=== PATIENT | female | born 1940 | race Hispanic/Latino ===

== ENCOUNTER 2021-12-03 22:30 | Inpatient (IN) | payer MEDICARE ==
[2021-12-03] MEDS ORDERED: SODIUM CHLORIDE 0.9% 1000 ML 1,000 ML IV ONE (23:10)
--- NOTE | 2021-12-03 23:17 | Emergency Department Report ---
HPI - General Chief Complaint: Medical Clearance PUI?: Yes Time Seen by Provider: 12/03/21 23:00 - HPI HPI: 81yo F presents stating "I'm tired." She states she is "nervous," after having been exposed to covid via her daughter. She did denies any nausea or vomiting fevers or chills. She states "sometimes I cough" but denies any active cough at this time. She reports decreased appetite. She denies any chest pain shortness of breath difficulty breathing palpitations abdominal pain or UTI symptoms. Pain 0-10 ED Past Medical Hx - Past Medical History Previous Medical History?: No - Family History Family history: no significant ED Review of Systems ROS: Stated complaint: WEAKNESS Other details as noted in HPI Constitutional: no symptoms reported. denies: chills, diaphoresis, fever, malaise, weakness, other Eyes: denies: eye pain, eye discharge, vision change ENT: denies: ear pain, throat pain, dental pain, hearing loss, epistaxis Respiratory: cough. denies: orthopnea, shortness of breath, SOB with exertion, SOB at rest, stridor, wheezing Cardiovascular: as per HPI. denies: chest pain, palpitations, dyspnea on exertion, orthopnea, edema, syncope, paroxysmal nocturnal dyspnea Endocrine: no symptoms reported Gastrointestinal: denies: abdominal pain, nausea, vomiting, diarrhea, constipation, hematemesis, melena Genitourinary: denies: urgency, dysuria, frequency, hematuria, discharge, abnormal menses, dyspareunia Musculoskeletal: denies: as per HPI, back pain, joint swelling, arthralgia, myalgia Skin: denies: rash, lesions, change in color, change in hair/nails, pruritus Neurological: denies: headache, weakness, numbness, paresthesias, confusion, abnormal gait, vertigo Psychiatric: anxiety. denies: depression, auditory hallucinations, visual hallucinations, homicidal thoughts, suicidal thoughts Hematological/Lymphatic: denies: as per HPI, easy bruising, swollen glands Physical Exam - Physical Exam Vital Signs: Vital Signs 12/03/21 22:33 Temperature 98 F Pulse Rate 82 Respiratory 16 Rate Blood Pressure 180/70 [Right] O2 Sat by Pulse 98 Oximetry General: Gen: pt is well appearing, no acute distress HEENT: Normocephalic atraumatic pupils equally round and reactive to light extraocular muscles intact sclera anicteric Neck: Full range of motion, no midline spinal tenderness palpation, no JVD, no carotid bruits, no nuchal rigidity CVS: S1-S2 regular rate and rhythm with no gallops rubs or murmurs, chest wall nontender Pulmonary: Clear to auscultation bilaterally, no wheezes rales or rhonchi Abdomen: Soft nondistended nontender no guarding or rebound tenderness, no palpable deformities or step-offs, normal active bowel sounds, no hepatosplenomegaly, no pulsatile masses : Deferred Extremities: No cyanosis no clubbing no edema, intact distal peripheral pulses, Integumentary: Skin normal, no petechia no purpura no abscess no lacerations no evidence of trauma no evidence of infection Neuro: Patient is awake alert and oriented to person place time situation, mentating well, cranial nerves II through XII intact, no focal neurodeficits, sensation grossly tact Psych: Calm cooperative, mood affect normal ED Course Vital Signs 12/03/21 22:33 Temperature 98 F Pulse Rate 82 Respiratory 16 Rate Blood Pressure 180/70 [Right] O2 Sat by Pulse 98 Oximetry ED Medical Decision Making - Lab Data Result diagrams: 12/03/21 23:27 12/03/21 23:27 - EKG Data -: EKG Interpreted by [place] EKG shows normal: sinus rhythm Rate: normal - EKG Data When compared to previous EKG there are: previous EKG unavailable Interpretation: other 12/04/21 01:03 Ventricular rate 71 bpm. P waves are present and proceed every QRS complex. Intervals normal. Patient has ST depressions in inferior and lateral leads. No ectopic. No arrhythmia. Normal axis. Sinus rhythm. Patient has no prior EKG available for comparison - Radiology Data Radiology results: report reviewed - Medical Decision Making 81-year-old female presents for evaluation of fatigue and weakness and concerns that she has active COVID infection. Vital stable. Patient is afebrile here. Labs reviewed. Creatinine and BUN are elevated. Patient has mild hyponatremia. She also has anemia and thrombocytopenia. Urinalysis remains pending at the time of this dictation. Chest x-ray unremarkable. Case reviewed with admitting hospitalist, Dr. Irby. He has accepted for the admission to the hospitalist service for further management. Critical care attestation.: If time is entered above; I have spent that time in minutes in the direct care of this critically ill patient, excluding procedure time. ED Disposition Clinical Impression: MANSI (acute kidney injury), Anemia, Thrombocytopenia Disposition: 09 ADMITTED INPATIENT Is pt being admited?: Yes Does the pt Need Aspirin: No Condition: Stable
--- NOTE | 2021-12-03 23:33 | XRay Report ---
CHEST 1 VIEW 12/03/2021 11:20 PM INDICATION / CLINICAL INFORMATION: fatigue, cough. COMPARISON: None available. FINDINGS: SUPPORT DEVICES: None. HEART / MEDIASTINUM: No significant abnormality. LUNGS / PLEURA: No significant pulmonary abnormality. No significant pleural effusion. No pneumothora x. ADDITIONAL FINDINGS: No significant additional findings. IMPRESSION: 1. No acute abnormality of the chest. Signer Name: Arron Kennedy MD Signed: 12/03/2021 11:28 PM Workstation Name: [id number]
[2021-12-03 23:40] LABS: Basophils % (Auto) 0.4 % (0.0-1.8); Eosinophils % (Auto) 0.5 % (0.0-4.3); Hematocrit 27.7 % (30.3-42.9); Hemoglobin 9.6 gm/dl (10.1-14.3); Lymphocytes # (Auto) 0.9 K/mm3 (1.2-5.4); Lymphocytes % (Auto) 17.9 % (13.4-35.0); Mean Corpuscular HGB Conc 35 % (30-34); Mean Corpuscular Volume 91 fl (79-97); Monocytes # (Auto) 0.5 K/mm3 (0.0-0.8); Monocytes % (Auto) 10.3 % (0.0-7.3); Platelet Count 117 K/mm3 (140-440); Red Blood Count 3.03 M/mm3 (3.65-5.03); Red Cell Distribution Width 13.2 % (13.2-15.2)
[2021-12-03 23:53] LABS: Calcium 8.2 mg/dL (8.4-10.2)
[2021-12-04] MEDS ORDERED: SODIUM CHLORIDE 0.9% 1000 ML 1,000 ML IV ONE (00:07)
[2021-12-04 01:40] LABS: Bilirubin,Urine Negative (Negative); Blood,Urine Negative (Negative); Color,Urine Colorless (Yellow); Urobilinogen,Urine 0.2 mg/dL (<2.0)
[2021-12-04 01:41] LABS: Bacteria,Urine 1+ /HPF (Negative); Mucus,Urine FEW /HPF; RBC,Urine < 1.0 /HPF (0.0-6.0)
[2021-12-04] MEDS ORDERED: MORPHINE 2 MG/1 ML INJ IV PRN (03:08)
[2021-12-04] MEDS ORDERED: ONDANSETRON 4 MG/2 ML INJ IV PRN (03:08)
[2021-12-04] MEDS ORDERED: MORPHINE 4 MG/1 ML INJ IV PRN (03:08)
[2021-12-04] MEDS ORDERED: MAGNESIUM HYDROXIDE (MOM) ORAL LIQD UDC PO PRN (03:08)
[2021-12-04] MEDS ORDERED: ACETAMINOPHEN 325 MG TAB PO PRN (03:08)
--- NOTE | 2021-12-04 03:24 | History and Physical Report ---
History of Present Illness Date of examination: 12/04/21 Date of admission: 12/02/2021 Chief complaint: Generalized weakness History of present illness: 81-year-old female with no significant past medical history presenting to the emergency room today complaining of generalized weakness, loss of appetite, nausea without any vomiting. Patient indicates that she probably has been exposed to COVID-19 as some family members had COVID infection. She states she has had a low-grade fever at home and some mild cough. She denies any chest pain and denies any shortness of breath. Denies any headache or dizziness and denies any diaphoresis. Patient admits that she has not had the COVID-19 vaccination. Work-up in the emergency room today, lab reveals hemoglobin of 9.6 and hematocrit of 27.7. Sodium of 133, BUN of 35 and creatinine of 3.1. Urinalysis significant for 1+ bacteria otherwise unremarkable. Chest x-ray was also unremarkable. Patient admitted for MANSI and will also be screened for COVID-19. Past History Past Medical History: No medical history Past Surgical History: No surgical history Social history: no significant social history Family history: no significant family history Medications and Allergies Allergies Allergy/AdvReac Type Severity Reaction Status Date / Time No Known Allergies Allergy Verified 12/04/21 03:21 Review of Systems Constitutional: weakness Ears, nose, mouth and throat: no nasal congestion, no sore throat Cardiovascular: no chest pain, no palpitations Respiratory: cough, shortness of breath Gastrointestinal: no abdominal pain, no nausea, no vomiting, no diarrhea Genitourinary Female: no pelvic pain, no flank pain, no dysuria, no nocturia Musculoskeletal: no neck pain, no low back pain Integumentary: no rash, no pruritis Neurological: no headaches, no confusion Psychiatric: no anxiety, no confusion Endocrine: no polyphagia, no polydipsia, no polyuria, no nocturia Exam - Constitutional Vitals: Temp Pulse Resp BP Pulse Ox 99.7 F H 82 16 180/70 98 12/04/21 01:28 12/03/21 22:33 12/03/21 22:33 12/03/21 22:33 12/03/21 22:33 General appearance: Present: no acute distress, well-nourished - EENT Eyes: Present: PERRL, EOM intact. Absent: scleral icterus ENT: hearing intact, clear oral mucosa, dentition normal - Neck Neck: Present: supple, normal ROM - Respiratory Respiratory effort: normal Respiratory: right: rales - Cardiovascular Rhythm: regular Heart Sounds: Present: S1 & S2. Absent: gallop, systolic murmur, diastolic murmur, rub, click - Extremities Extremities: no ischemia, pulses intact, pulses symmetrical, No edema, normal temperature, normal color, Full ROM Peripheral Pulses: within normal limits - Abdominal General gastrointestinal: Present: soft, non-tender, non-distended, normal bowel sounds. Absent: mass - Integumentary Integumentary: Present: clear, warm, dry - Musculoskeletal Musculoskeletal: strength equal bilaterally - Psychiatric Psychiatric: appropriate mood/affect, intact judgment & insight, memory intact, cooperative - Neurologic Neurologic: CNII-XII intact, no focal deficits, moves all extremities Results - Labs CBC & Chem 7: 12/03/21 23:27 08 23:27 Labs: Abnormal lab results 12/03/21 12/03/21 Range/Units 23:27 23:27 RBC 3.03 L (3.65-5.03) M/mm3 Hgb 9.6 L (10.1-14.3) gm/dl Hct 27.7 L (30.3-42.9) % MCHC 35 H (30-34) % Plt Count 117 L (140-440) K/mm3 [place] % (Auto) 10.3 H (0.0-7.3) % Lymph # (Auto) 0.9 L (1.2-5.4) K/mm3 Seg Neutrophils % 70.9 H (40.0-70.0) % Sodium 133 L (137-145) mmol/L Carbon Dioxide 20 L (22-30) mmol/L BUN 35 H (7-17) mg/dL Creatinine 3.1 H (0.6-1.2) mg/dL Glucose 109 H (65-100) mg/dL Calcium 8.2 L (8.4-10.2) mg/dL Assessment and Plan Assessment: 1. Generalized weakness. 2. MANSI 3. PUI Plan: 1. Patient admitted and placed on IV fluid. 2. We monitor BUN and creatinine. 3. Patient will be screened for COVID-19. 4. Please consult to nephrology for evaluation and recommendations. DVT Prophylaxis: SQ heparin Code Status : Full Code
--- NOTE | 2021-12-04 08:55 | Consultation ---
History of Present Illness - Reason for Consult Consult date: 12/04/21 acute renal failure - History of Present Illness The patient is a 81 YO female with no significant past medical history who presented to [facility] ED 12/03/21 with complaint of generalized weakness, loss of appetite, nausea without any vomiting. Patient is a very poor historian. He indicated that she probably has been exposed to COVID-19 as some family members had COVID infection. She reported that she has had a low-grade fever at home and some mild cough. She denies any chest pain, shortness of breath, headache, dizziness and diaphoresis. Patient has not had the COVID-19 vaccination. Work- up in the ED, Hemoglobin 9.6, Sodium 133, BUN 35 and Creatinine of 3.1. Urinalysis negative for protein and blood. Chest x-ray was unremarkable. Nephrology consulted for further evaluation and treatment of MANSI. Past History Past Medical History: No medical history Past Surgical History: No surgical history Social history: no significant social history Family history: no significant family history Medications and Allergies Allergies Allergy/AdvReac Type Severity Reaction Status Date / Time No Known Allergies Allergy Verified 12/04/21 03:21 Active Meds: Active Medications Acetaminophen (Acetaminophen 325 Mg Tab) 650 mg PO Q4H PRN PRN Reason: Pain MILD(1-3)/Fever >100.5/CLAUDIO Sodium Chloride (Nacl 0.9% 1000 Ml) 1,000 mls @ 125 mls/hr IV DIRECT FRANC Magnesium Hydroxide (Magnesium Hydroxide (Mom) Oral Liqd Udc) 30 ml PO Q4H PRN PRN Reason: Constipation Morphine Sulfate (Morphine 2 Mg/1 Ml Inj) 2 mg IV Q4H PRN PRN Reason: Pain, Moderate (4-6) Morphine Sulfate (Morphine 4 Mg/1 Ml Inj) 4 mg IV Q4H PRN PRN Reason: Pain , Severe (7-10) Ondansetron HCl (Ondansetron 4 Mg/2 Ml Inj) 4 mg IV Q8H PRN PRN Reason: Nausea And Vomiting Sodium Chloride (Sodium Chloride 0.9% 10 Ml Flush Syringe) 10 ml IV BID FRANC Sodium Chloride (Sodium Chloride 0.9% 10 Ml Flush Syringe) 10 ml IV PRN PRN PRN Reason: LINE FLUSH Review of Systems ROS unobtainable: due to mental status Exam - Vital Signs Vital signs: Vital Signs Temp Pulse Resp BP Pulse Ox 98 F 82 16 180/70 98 12/03/21 22:33 12/03/21 22:33 12/03/21 22:33 12/03/21 22:33 12/03/21 22:33 Results - Lab Results 12/03/21 23:27 12/04/21 12:53 Most recent lab results Calcium 8.2 mg/dL (8.4-10.2) L 12/03/21 23:27 Assessment and Plan 1. Acute kidney injury: Vasomotor MANSI superimposed on CKD in the setting of A.Fib with RVR. UA negative. Renal US showed atrophic kidneys. Baseline renal function unknown, most likely CKD. IV fluids. Monitor renal function. Creatinine leveled off. Avoid nephrotoxic agents. Meds dosage based on GFR. 2. FEN: Hyperkalemia, Kayaxalate, monitor. Replete lytes as needed. Monitor lytes and volume status. 3. Generalized weakness: Monitor. 4. COVID PUI 5. Normocytic Anemia, POA: Trend. Subjective: Patient was seen and examined at the bedside. Examination: General appearance: well-developed, appears stated age, no distress HEENT: atraumatic, no icterus Neck: trachea midline Respiratory: ctab Heart: S1S2, regular, no murmur Abdomen: soft, bowel sounds heard, NT Integumentary: no obvious rash Neurologic: AO, able to move extremities Ext: no edema
--- NOTE | 2021-12-04 09:01 | Ultrasound Report ---
ULTRASOUND RENAL INDICATION / CLINICAL INFORMATION: MANSI. COMPARISON: None available. FINDINGS: RIGHT KIDNEY: Length = 8.9 cm. [normal > 9 cm] - Parenchymal Thickness = 1.2 cm. [normal > 1.5 cm] - Echogenicity: Increased - Hydronephrosis: None. - Cyst or mass: No significant abnormality. - Stones: None seen. LEFT KIDNEY: Length = 8.7 cm. [normal > 9 cm] - Parenchymal Thickness = 1.4 cm. [normal > 1.5 cm] - Echogenicity: Increased - Hydronephrosis: None. - Cyst or mass: No significant abnormality. - Stones: None seen. URINARY BLADDER: The bladder is mostly empty but no gross abnormality. FREE FLUID: None. ADDITIONAL FINDINGS: None. IMPRESSION: Both kidneys are slightly atrophic with increased echotexture consistent with nonspecific chronic re nal parenchymal disease. No focal renal lesion, nephrolithiasis or hydronephrosis. Signer Name: Kleber Pabon Jr, MD Signed: 12/04/2021 8:56 AM Workstation Name: [id number]
[2021-12-04 13:30] LABS: Albumin 3.8 g/dL (3.9-5); Calcium 8.9 mg/dL (8.4-10.2)
[2021-12-04 14:49] LABS: C-Reactive Protein 2.1 mg/dL (0.00-1.30)
--- NOTE | 2021-12-04 16:26 | Event Note ---
Date: 12/04/21 81-year-old female with no significant past medical history presenting to the emergency room complaining of generalized weakness, loss of appetite, nausea without any vomiting and low-grade fever. Patient indicates that she probably has been exposed to COVID-19 as some family members had COVID infection. Patient admits that she has not had the COVID-19 vaccination. Work-up in the emergency room showed hemoglobin of 9.6 and hematocrit of 27.7. Sodium of 133, BUN of 35 and creatinine of 3.1. Urinalysis significant for 1+ bacteria otherwise unremarkable. Chest x-ray was also unremarkable. Patient admitted for MANSI and ordered for COVID-19. Continue IV fluid, nephrology has been consulted Follow COVID-19 test result, monitor fever curve and O2 saturation Repeat BMP in the morning -It took me about 28 minutes to reevaluate and reasses this patient, discussed with RN/CM, review medical documents, lab results, imaging, medication list and placing order.
[2021-12-04] MEDS ORDERED: SODIUM POLYSTYRENE 15 GM/60 ML ORAL LIQD PO ONE (19:16)
[2021-12-05] MEDS: SODIUM CHLORIDE 0.9% 1000 ML 1,000 ML IV SCH ×2 (05:22→17:05)
[2021-12-05] MEDS ORDERED: hydrALAZINE 20 MG/1 ML INJ IV NR (06:31)
[2021-12-05 07:32] LABS: Basophils % (Auto) 0.2 % (0.0-1.8); Eosinophils # (Auto) 0.2 K/mm3 (0.0-0.4); Eosinophils % (Auto) 3.1 % (0.0-4.3); Hematocrit 25.8 % (30.3-42.9); Hemoglobin 9.2 gm/dl (10.1-14.3); Lymphocytes # (Auto) 0.9 K/mm3 (1.2-5.4); Lymphocytes % (Auto) 17.6 % (13.4-35.0); Mean Corpuscular HGB Conc 36 % (30-34); Mean Corpuscular Volume 91 fl (79-97); Monocytes # (Auto) 0.6 K/mm3 (0.0-0.8); Monocytes % (Auto) 11.2 % (0.0-7.3); Platelet Count 121 K/mm3 (140-440); Red Blood Count 2.84 M/mm3 (3.65-5.03); Red Cell Distribution Width 12.7 % (13.2-15.2)
[2021-12-05 07:47] LABS: Calcium 8.3 mg/dL (8.4-10.2)
[2021-12-05] MEDS ORDERED: SODIUM POLYSTYRENE 15 GM/60 ML ORAL LIQD PO NR (07:54)
--- NOTE | 2021-12-05 12:27 | Progress Note ---
Assessment and Plan 1. Acute kidney injury: Vasomotor MANSI superimposed on CKD in the setting of A.Fib with RVR. UA negative. Renal US showed atrophic kidneys. Baseline renal function unknown, most likely CKD. IV fluids. Monitor renal function. Creatinine leveled off. Avoid nephrotoxic agents. Meds dosage based on GFR. 2. FEN: Hyperkalemia, Kayaxalate, monitor. Replete lytes as needed. Monitor lytes and volume status. 3. Generalized weakness: Monitor. 4. COVID PUI 5. Normocytic Anemia, POA: Trend. Subjective: Patient was seen and examined at the bedside. Examination: General appearance: well-developed, appears stated age, no distress HEENT: atraumatic, no icterus Neck: trachea midline Respiratory: ctab Heart: S1S2, regular, no murmur Abdomen: soft, bowel sounds heard, NT Integumentary: no obvious rash Neurologic: AO, able to move extremities Ext: no edema Subjective Date of service: 12/05/21 Objective - Vital Signs Vital signs: Vital Signs - 12hr 12/05/21 12/05/21 01:36 04:57 Temperature 98.7 F Pulse Rate 61 Respiratory 16 Rate Blood Pressure 171/48 O2 Sat by Pulse 98 96 Oximetry - Lab 12/05/21 06:50 12/05/21 17:30 Most recent lab results Calcium 8.3 mg/dL (8.4-10.2) L 12/05/21 06:50 Medications & Allergies - Medications Allergies/Adverse Reactions: Allergies No Known Allergies Allergy (Verified 12/04/21 03:21) Active Medications: Generic Name Dose Route Start Last Admin Trade Name Freq PRN Reason Stop Dose Admin Acetaminophen 650 mg 12/04/21 03:08 Acetaminophen 325 Mg Tab PO Q4H PRN Pain MILD(1-3)/Fever >100.5/CLAUDIO Sodium Chloride 1,000 mls @ 125 mls/hr 12/04/21 03:15 12/05/21 05:22 Nacl 0.9% 1000 Ml IV 125 mls/hr DIRECT FRANC Administration Magnesium Hydroxide 30 ml 12/04/21 03:08 Magnesium Hydroxide (Mom) Oral Liqd Udc PO Q4H PRN Constipation Morphine Sulfate 2 mg 12/04/21 03:08 Morphine 2 Mg/1 Ml Inj IV Q4H PRN Pain, Moderate (4-6) Morphine Sulfate 4 mg 12/04/21 03:08 Morphine 4 Mg/1 Ml Inj IV Q4H PRN Pain , Severe (7-10) Ondansetron HCl 4 mg 12/04/21 03:08 Ondansetron 4 Mg/2 Ml Inj IV Q8H PRN Nausea And Vomiting Sodium Chloride 10 ml 12/04/21 10:00 12/04/21 23:27 Sodium Chloride 0.9% 10 Ml Flush Syringe IV 10 ml BID FRANC Administration Sodium Chloride 10 ml 12/04/21 03:08 Sodium Chloride 0.9% 10 Ml Flush Syringe IV PRN PRN LINE FLUSH
--- NOTE | 2021-12-05 15:09 | Progress Note ---
Assessment and Plan 81-year-old female with no significant past medical history presenting to the emergency room complaining of generalized weakness, loss of appetite, nausea without any vomiting and low-grade fever. Patient indicates that she probably has been exposed to COVID-19 as some family members had COVID infection. Patient admits that she has not had the COVID-19 vaccination. Work-up in the emergency room showed hemoglobin of 9.6 and hematocrit of 27.7. Sodium of 133, BUN of 35 and creatinine of 3.1. Urinalysis significant for 1+ bacteria otherwise unremarkable. Chest x-ray was also unremarkable. Patient admitted for MANSI and ordered for COVID-19. Daily clinical course: 12/05/21: Patient is positive for COVID-19, she is maintaining oxygenation on room air. We will follow-up inflammatory markers. Continue to decline renal function patient is not a candidate for remdesivir and no dexamethasone needed as patient not hypoxic. Continue to follow renal function, will consult ID. Assessment and plan: --Positive for COVID-19 -Patient tested positive for COVID-19 virus -CXR is unremarkable, patient is not hypoxic -We will consult infectious disease -Droplet/contact isolation -Continue SPO2 monitoring -Supplemental oxygen as needed -Pulmonary hygiene -Prone to sleep -Vitamin C, vitamin D, zinc -Anticoagulation per protocol -- MANSI on possible CKD Likely due to vasomotor nephropathy and COVID-19 infection Renal ultrasound suggestive for chronic medical disease Gentle IV fluid hydration and follow [facility] Nephrology following --Anemia of chronic disease, monitor H&H --Hyperkalemia, likely due to underlying CKD Follow [facility], start sodium bicarbonate p.o. --Metabolic acidosis due to underlying CKD, started on sodium bicarbonate --DVT prophylaxis, heparin Subjective Date of service: 12/05/21 Interval history: Patient seen and examined. Medical records and medication list reviewed. No acute event overnight noted by the RN. Patient denies any chest pain or difficulty breathing. Patient is tolerating diet. Resting on room air Discussed plan of care at bedside with patient. Objective - Exam Narrative Exam: Limited physical exam due to COVID-19 pandemic to minimize transmission of the disease and to preserve PPE. Vital reviewed and stable. GENERAL: Elderly white female lying on bed appeared to be in no discomfort. HEENT: Normocephalic. Atraumatic. NECK: Supple. CHEST/LUNGS: breathing nonlabored. HEART/CARDIOVASCULAR: Heart rate stable on telemetry ABDOMEN: Visibly not distended SKIN: There is no rash NEURO: No focal motor deficit. Follows command. MUSCULOSKELETAL: No joint effusion EXTRIMITY: No swelling, no cyanosis or clubbing. PSYCH: Cooperative. - Constitutional Vitals: Vital Signs - 12hr 12/05/21 04:57 Temperature 98.7 F Pulse Rate 61 Respiratory 16 Rate Blood Pressure 171/48 O2 Sat by Pulse 96 Oximetry - Labs CBC & Chem 7: 12/05/21 06:50 12/05/21 06:50 Labs: Abnormal lab results 12/05/21 12/05/21 12/05/21 Range/Units 06:50 06:50 09:10 RBC 2.84 L (3.65-5.03) M/mm3 Hgb 9.2 L (10.1-14.3) gm/dl Hct 25.8 L (30.3-42.9) % MCHC 36 H (30-34) % RDW 12.7 L (13.2-15.2) % Plt Count 121 L (140-440) K/mm3 [place] % (Auto) 11.2 H (0.0-7.3) % Lymph # (Auto) 0.9 L (1.2-5.4) K/mm3 Sodium 135 L (137-145) mmol/L Potassium 5.2 H (3.6-5.0) mmol/L Chloride 107.3 H (98-107) mmol/L Carbon Dioxide 18 L (22-30) mmol/L BUN 33 H (7-17) mg/dL Creatinine 3.0 H (0.6-1.2) mg/dL Calcium 8.3 L (8.4-10.2) mg/dL Coronavirus (PCR) Positive A (Negative)
[2021-12-05 16:33] LABS: Creatinine,Urine 47.4 mg/dL (0.1-20.0)
[2021-12-05] MEDS: HEPARIN 5,000 UNIT/1 ML VIAL SUB-Q SCH ×2 (16:37→21:54)
[2021-12-05] MEDS: SODIUM BICARBONATE 650 MG TAB PO SCH ×2 (17:04→21:54)
[2021-12-05] MEDS ORDERED: hydrALAZINE 10 MG TAB PO PRN (19:30)
[2021-12-05 19:35] LABS: C-Reactive Protein 4.1 mg/dL (0.00-1.30)
[2021-12-05] MEDS ORDERED: hydrALAZINE 20 MG/1 ML INJ IV PRN (19:40)
[2021-12-06] MEDS: HEPARIN 5,000 UNIT/1 ML VIAL SUB-Q SCH ×2 (06:19→13:59)
[2021-12-06 07:37] LABS: Calcium 8.1 mg/dL (8.4-10.2)
[2021-12-06] MEDS: SODIUM BICARBONATE 650 MG TAB PO SCH (09:27)
[2021-12-06] MEDS: SODIUM CHLORIDE 0.9% 1000 ML 1,000 ML IV SCH (11:19)
--- NOTE | 2021-12-06 11:50 | Progress Note ---
Assessment and Plan 1. Acute kidney injury: Vasomotor MANSI superimposed on CKD in the setting of A.Fib with RVR. UA negative. Renal US showed atrophic kidneys. Baseline renal function unknown, most likely CKD. IV fluids. Monitor renal function. Creatinine level is improving. Avoid nephrotoxic agents. Meds dosage based on GFR. 2. FEN: Hyperkalemia, improved, monitor. Replete lytes as needed. Monitor lytes and volume status. 3. Generalized weakness: Monitor. 4. COVID. 5. Normocytic Anemia, POA: Trend. Subjective: Patient was seen and examined at the bedside. Doing ok. Examination: General appearance: well-developed, appears stated age, no distress HEENT: atraumatic, no icterus Neck: trachea midline Respiratory: ctab Heart: S1S2, regular, no murmur Abdomen: soft, bowel sounds heard, NT Integumentary: no obvious rash Neurologic: AO, able to move extremities Ext: no edema Subjective Date of service: 12/06/21 Objective - Vital Signs Vital signs: Vital Signs - 12hr 12/06/21 12/06/21 12/06/21 01:00 05:22 11:32 Temperature 98.4 F 98.2 F Pulse Rate 68 Respiratory 14 18 Rate Blood Pressure 174/59 Blood Pressure 144/54 [Right] O2 Sat by Pulse 97 100 92 Oximetry - Lab 12/05/21 06:50 12/06/21 06:52 Most recent lab results Calcium 8.1 mg/dL (8.4-10.2) L 12/06/21 06:52 Urine Creatinine 47.4 mg/dL (0.1-20.0) H 12/04/21 08:56 Urine Sodium 109 mmol/L 12/04/21 08:56 Medications & Allergies - Medications Allergies/Adverse Reactions: Allergies No Known Allergies Allergy (Verified 12/04/21 03:21) Home Medications: Home Medications Medication Instructions Recorded Confirmed Last Taken Type Ascorbic Acid [Vitamin C] 1,000 mg PO BID #14 tablet 12/06/21 Unknown Rx Cholecalciferol (Vitamin D3) 5,000 unit PO DAILY #7 tablet 12/06/21 Unknown Rx [Vitamin D3] Sodium Bicarbonate 650 mg PO BID #14 tablet 12/06/21 Unknown Rx Zinc Sulfate 220 mg PO BID #14 capsule 12/06/21 Unknown Rx amLODIPine 10 mg PO QDAY #30 tablet 12/06/21 Unknown Rx hydrALAZINE [Apresoline TAB] 50 mg PO Q8HR #90 tablet 12/06/21 Unknown Rx Active Medications: Generic Name Dose Route Start Last Admin Trade Name Freq PRN Reason Stop Dose Admin Acetaminophen 650 mg 12/04/21 03:08 12/05/21 23:01 Acetaminophen 325 Mg Tab PO 650 mg Q4H PRN Administration Pain MILD(1-3)/Fever >100.5/CLAUDIO Heparin Sodium (Porcine) 5,000 unit 12/05/21 15:30 12/06/21 06:19 Heparin 5,000 Unit/1 Ml Vial SUB-Q Not Given Q8HR FRANC Hydralazine HCl 20 mg 12/05/21 19:40 12/05/21 21:55 Hydralazine 20 Mg/1 Ml Inj IV 20 mg Q4HR PRN Administration Hypertension Sodium Chloride 1,000 mls @ 125 mls/hr 12/04/21 03:15 12/06/21 11:19 Nacl 0.9% 1000 Ml IV 125 mls/hr DIRECT FRANC Administration Magnesium Hydroxide 30 ml 12/04/21 03:08 Magnesium Hydroxide (Mom) Oral Liqd Udc PO Q4H PRN Constipation Morphine Sulfate 2 mg 12/04/21 03:08 Morphine 2 Mg/1 Ml Inj IV Q4H PRN Pain, Moderate (4-6) Morphine Sulfate 4 mg 12/04/21 03:08 Morphine 4 Mg/1 Ml Inj IV Q4H PRN Pain , Severe (7-10) Ondansetron HCl 4 mg 12/04/21 03:08 Ondansetron 4 Mg/2 Ml Inj IV Q8H PRN Nausea And Vomiting Sodium Bicarbonate 650 mg 12/05/21 16:00 12/06/21 09:27 Sodium Bicarbonate 650 Mg Tab PO 650 mg BID FRANC Administration Sodium Chloride 10 ml 12/04/21 10:00 12/06/21 09:25 Sodium Chloride 0.9% 10 Ml Flush Syringe IV 10 ml BID FRANC Administration Sodium Chloride 10 ml 12/04/21 03:08 Sodium Chloride 0.9% 10 Ml Flush Syringe IV PRN PRN LINE FLUSH
--- NOTE | 2021-12-06 12:33 | Discharge Summary ---
Providers - Providers Date of Admission: 12/04/21 03:08 Date of discharge: 12/06/21 Attending physician: GILMER AGUILAR 12/04/21 07:43 Consult to Physician [CONS] Routine Comment: Consulting Provider: VINCE LAM Physician Instructions: Reason For Exam: MANSI 12/05/21 09:08 Physical Therapy Evaluation and Treat [CONS] Stat Comment: Eval and Treat Reason For Exam: Physical Therapy 12/05/21 09:09 Occupational Therapy Evaluate and Treat [CONS] Stat Comment: Eval and Treat Reason For Exam: occupational Therapy Primary care physician: TITA MEADOWS Hospitalization Condition: Stable Hospital course: 81-year-old female with no significant past medical history presenting to the emergency room complaining of generalized weakness, loss of appetite, nausea without any vomiting and low-grade fever. Patient indicates that she probably has been exposed to COVID-19 as some family members had COVID infection. Patient admits that she has not had the COVID-19 vaccination. Work-up in the emergency room showed hemoglobin of 9.6 and hematocrit of 27.7. Sodium of 133, BUN of 35 and creatinine of 3.1. Urinalysis significant for 1+ bacteria otherwise unremarkable. Chest x-ray was also unremarkable. Patient admitted for MANSI and ordered for COVID-19. Daily clinical course: 12/05/21: Patient is positive for COVID-19, she is maintaining oxygenation on room air. We will follow-up inflammatory markers. Continue to decline renal function patient is not a candidate for remdesivir and no dexamethasone needed as patient not hypoxic. Continue to follow renal function, will consult ID. Assessment and plan: --Positive for COVID-19 -Patient tested positive for COVID-19 virus -CXR is unremarkable, patient is not hypoxic -We will consult infectious disease -Droplet/contact isolation -Continue SPO2 monitoring -Supplemental oxygen as needed -Pulmonary hygiene -Prone to sleep -Vitamin C, vitamin D, zinc -Anticoagulation per protocol -- MANSI on possible CKD Likely due to vasomotor nephropathy and COVID-19 infection Renal ultrasound suggestive for chronic medical disease Gentle IV fluid hydration and follow BMP Nephrology following --Anemia of chronic disease, monitor H&H --Hyperkalemia, likely due to underlying CKD Follow BMP, start sodium bicarbonate p.o. --Metabolic acidosis due to underlying CKD, started on sodium bicarbonate --DVT prophylaxis, heparin Disposition: 01 HOME / SELF CARE / HOMELESS Time spent for discharge: 34 minutes Core Measure Documentation - Palliative Care Palliative Care/ Comfort Measures: Not Applicable - Core Measures Any of the following diagnoses?: none Exam - Physical Exam Narrative exam: Limited physical exam due to COVID-19 pandemic to minimize transmission of the disease and to preserve PPE. Vital reviewed and stable. GENERAL: Elderly white female lying on bed appeared to be in no discomfort. HEENT: Normocephalic. Atraumatic. NECK: Supple. CHEST/LUNGS: breathing nonlabored. HEART/CARDIOVASCULAR: Heart rate stable on telemetry ABDOMEN: Visibly not distended SKIN: There is no rash NEURO: No focal motor deficit. Follows command. MUSCULOSKELETAL: No joint effusion EXTRIMITY: No swelling, no cyanosis or clubbing. PSYCH: Cooperative. - Constitutional Vitals: Temp Pulse Resp BP Pulse Ox 98.2 F 68 18 174/59 92 12/06/21 11:32 12/06/21 05:22 12/06/21 11:32 12/06/21 11:32 12/06/21 11:32 Plan Activity: advance as tolerated Weight Bearing Status: Weight Bear as Tolerated Diet: renal Additional Instructions: Repeat BMP in one week. Upon discharge patient should self-quarantine at home up to 10 days from the onset of symptoms. Patients should return to hospital regardless if they have worsening fevers or respiratory status. Follow up with: TITA MEADOWS MD [Primary Care Provider] - 7 Days VINCE LAM MD [Staff Physician] - 7 Days Prescriptions: Sodium Bicarbonate 650 mg PO BID #14 tablet Ascorbic Acid [Vitamin C] 1,000 mg PO BID #14 tablet Cholecalciferol (Vitamin D3) [Vitamin D3] 5,000 unit PO DAILY #7 tablet Zinc Sulfate 220 mg PO BID #14 capsule
[2021-12-06] MEDS ORDERED: hydrALAZINE 25 MG TAB PO SCH (14:00)
[2021-12-06] MEDS ORDERED: amLODIPine 10 MG TAB PO SCH (14:00)
[2021-12-06] MEDS ORDERED: ASCORBIC ACID 500 MG TAB PO SCH (14:00)
[2021-12-06] MEDS ORDERED: ZINC SULFATE 220 MG CAP PO SCH (14:00)
[2021-12-06] MEDS ORDERED: CHOLECALCIFEROL (VIT D3) 5,000 UNIT TAB PO SCH (14:00)
[2021-12-06 17:36] VITALS: BP 183/66
--- NOTE | 2021-12-08 10:08 | Electrocardiograph Report ---
[facility] Test Date: 2021-12-05 Test Time: 13:25:19 Pat Name: ML SHANKAR Department: Room: A356 1 Gender: F Primer Supervisor: SATYA : 1940 Requested By: CHRISTIN SIMON Order Number: [id number] Reading MD: Kenny Stehpens Measurements Intervals [place] Rate: 69 P: 76 WI: 155 QRS: 26 QRSD: 89 T: 82 QT: 427 QTc: 458 Interpretive Statements Sinus rhythm ST depression, consider lateral ischemia No previous ECG available for comparison Electronically Signed On 12-08-2021 10:08:25 EDT by Kenny Stephens
== END 2021-12-06 14:30 | disposition home or self-care (01) | DRG 177 ==
LOC: ED 22:30 → 3A 12-04 03:08
PROVIDERS: ADMIT Internal Medicine Geriatric Medicine; ATTEND Internal Medicine
DX: U07.1 COVID-19 (principal); N17.0 Acute kidney failure with tubular necrosis; E87.2 Acidosis; D69.6 Thrombocytopenia, unspecified; E87.5 Hyperkalemia; I48.91 Unspecified atrial fibrillation; N18.9 Chronic kidney disease, unspecified; D63.8 Anemia in other chronic diseases classified elsewhere
CPT/HCPCS: 36415; 71045; 76770; 80048; 80053; 81001; 82550; 82570; 82728; 82947; 83615; 83970; 84145; 84300; 85025; 85379; 86140; 93005; G0378; J0360; J1644; J7030; U0003